=== PATIENT | male | born 1990 | race Caucasian/White ===

== ENCOUNTER 2017-03-28 00:14 | Emergency (ER) | payer MEDICAID, OTHER ==
[~2017-03-28] VITALS: Wt 100.5 kg
[~2017-03-28 00:14] MED LIST: AZIT250T94 PO; CEPH-443 PO; CIPR7.5D4 LEFT EAR; LORA10CA PO
[2017-03-28] MEDS ORDERED: D-ME473S18 PO (01:47)
[2017-03-28] MEDS ORDERED: AZIT250T94 PO (01:47)
[2017-03-28] MEDS ORDERED: ALBU8.5H3 INH (01:48)
--- NOTE | 2017-03-28 01:52 | ERD ---
ER Documentation Chief Complaint Date/Time DATE: 03/28/17 TIME: 01:50 Chief Complaint Cough x1 week HPI This is a 26-year-old male presents here with a cough for the last week, patient states that cough is productive. He also has nasal congestion and states that his phlegm is green in color. Patient states that he was wheezing last night. He does admit to fevers which have now resolved. He denies any chest pain or shortness of breath. He denies any ear pain sore throat. There are no sick contacts at home. ROS 12 point review of systems was done, all negative except per HPI. Medications Home Meds Active Scripts Albuterol Sulfate* (Proair HFA*) 8.5 Gm Hfa.aer.ad, 2 PUFF INH Q4, #1 INHALER Prov:IMANI SAINI 03/28/17 Dextromethorphan Hb-Promethazine Hcl (Promethazine DM Syrup) 473 Ml Syrup, 10 ML PO Q6H Y for COUGH, #4 OZ Prov:IMANI SAINI 03/28/17 Azithromycin* (Zithromax*) 250 Mg Tablet, 250 MG PO .ZPACK DIRECTED, #6 TAB TAKE 500 MG (2 TABS) THE FIRST DAY THEN 250 MG (1 TAB) DAYS 2-5 Prov:IMANI SAINI 03/28/17 Cephalexin* (Keflex*) 500 Mg Capsule, 500 MG PO QID for 5 Days, CAP Prov:CHANTE BARRERA PA-C 02/13/16 Loratadine* (Claritin*) 10 Mg Capsule, 10 MG PO DAILY, #20 CAP Prov:CHANTE BARRERA PA-C 02/13/16 Azithromycin* (Zithromax*) 250 Mg Tablet, 250 MG PO .ZPACK DIRECTED, #6 TAB TAKE 500 MG (2 TABS) THE FIRST DAY THEN 250 MG (1 TAB) DAYS 2-5 Prov:CHANTE BARRERA PA-C 02/13/16 Ciprofloxacin Hcl/Dexameth (Ciprodex Otic Suspension) 7.5 Ml Drops.susp, 4 DROP LEFT EAR BID for 7 Days, EA Prov:CHANTE BARRERA PA-C 02/13/16 Reported Medications [None] No Conflict Check 06/05/10 Allergies Allergies: Coded Allergies: No Known Allergies (Verified Allergy, Mild, 06/05/10) PMhx/Soc Medical and Surgical Hx: pt denies Medical Hx, pt denies Surgical Hx History of Surgery: No Anesthesia Reaction: No Hx Neurological Disorder: No Hx Respiratory Disorders: No Hx Cardiac Disorders: No Hx Psychiatric Problems: No Hx Miscellaneous Medical Probl: No Hx Alcohol Use: No Hx Substance Use: No Hx Tobacco Use: No Smoking Status: Never smoker Physical Exam Vitals Vital Signs Date Time Temp Pulse Resp B/P Pulse Ox O2 Delivery O2 Flow Rate FiO2 03/28/17 00:34 98.3 92 18 129/76 96 Physical Exam GENERAL: The patient is well-developed, well-nourished, in no acute distress. NECK: Cervical spine is non tender with no step off. Supple, no nuchal rigidity HEENT: Atraumatic. Pupils equal, round and reactive to light. Extraocular muscles are grossly intact. Conjunctivae pink, no discharge. Bilateral tympanic membranes are clear with no evidence of erythema, effusion or dulling of the light reflex. Tonsilar erythema with no exudates or uvular deviation. Clear rhinorrhea. RESPIRATORY: Clear to auscultation bilaterally. There are no rales, wheezes or rhonchi. HEART: Regular rate and rhythm. No murmurs, clicks, rubs or gallops. EXTREMITIES: No clubbing or cyanosis. Full range of motion. Grossly neurovascularly intact. NEUROLOGIC: Alert and oriented. Cranial nerves II through XII are intact. SKIN: There is no rash. The skin is warm and dry. Procedures/MDM Differential diagnosis includes but is not limited to; Viral URI, allergic rhinitis, bronchitis, pertussis,pneumonia. Patient will be treated for possible bacterial bronchitis secondary to the patient's severity and length of symptoms. Clinical suspicion for pneumonia is low as patient appears well, is not hypoxic or in any respiratory distress. Additionally, patients physical examination is benign. Plan was discussed with patient they understand and agree. Patient needs to follow up with PCP in 1-2 days or return to ER sooner if symptoms worsen. Departure Diagnosis: Primary Impression: Bronchitis Condition: Stable Patient Instructions: Bronchitis With Wheezing (Adult) Additional Instructions: Call your primary care doctor TOMORROW for an appointment during the next 1-2 days.See the doctor sooner or return here if your condition worsens before your appointment time. IMANI SAINI March 28, 2017 01:52
[2017-03-28] MEDS ORDERED: MOTS PO (02:52)
[2017-03-28] MEDS ORDERED: IBUP400T22 PO (02:54)
[2017-03-28 02:58] VITALS: BP 124/73; PULSE 97; RESP 20; TEMP 98.7
== END 2017-03-28 02:59 | disposition home or self-care (01) ==
LOC: FTE 00:14
DX: J20.9 Acute bronchitis, unspecified (principal)
CPT/HCPCS: 99284